=== PATIENT | male | born 1995 | race Caucasian/White ===

== ENCOUNTER 2017-06-24 00:33 | Emergency (ER) | END 2017-06-24 04:45 | disposition home or self-care (01) ==

== ENCOUNTER 2017-08-24 11:19 | Emergency (ER) | END 2017-08-24 12:34 | disposition home or self-care (01) ==

== ENCOUNTER 2018-01-18 01:42 | Emergency (ER) | END 2018-01-18 02:55 | disposition home or self-care (01) ==

== ENCOUNTER 2018-03-21 00:56 | Emergency (ER) | END 2018-03-21 04:05 | disposition home or self-care (01) ==

== ENCOUNTER 2018-09-18 22:48 | Emergency (ER) | payer OTHER ==
[~2018-09-18] VITALS: Ht 180.3 cm; Wt 80.0 kg
[~2018-09-18 22:48] MED LIST: BACI28.34 TOP; CEPH-443 PO; CLIN300C10 PO; IBUP-1542 PO; IBUP800T48 PO; ONDA4TAB14 PO; SULF1TAB31 PO
[2018-09-18 22:49] VITALS: Ht 180.3 cm; Wt 80.0 kg
[2018-09-19] MEDS ORDERED: ONDANSETRON 4 MG INJ IV STA (00:56)
[2018-09-19] MEDS ORDERED: SOD CHLORIDE 0.9% 1,000 ML IV STA (00:56)
[2018-09-19] MEDS ORDERED: morphine 4 MG/ML VIAL IV STA (00:56)
[2018-09-19] MEDS ORDERED: KETOROLAC 30 MG INJ IV STA (00:56)
[2018-09-19] MEDS ORDERED: TRAM50TA2 PO (03:25)
[2018-09-19] MEDS ORDERED: CEPH-443 PO (03:25)
[2018-09-19] MEDS ORDERED: TAMS-14 PO (03:25)
--- NOTE | 2018-09-19 03:42 | ERD ---
ER Documentation Chief Complaint Chief Complaint kidney stones hx of with nausea HPI This is a 23-year-old male with kidney stones. He said he started having flank pain sudden onset about 4 hours prior to arrival. Pain is colicky in nature. Mild associated nausea but no vomiting. No fevers or chills. ROS All systems reviewed and are negative except as per history of present illness. Medications Home Meds Active Scripts Tramadol HCl (Tramadol HCl) 50 Mg Tablet, 50 MG PO Q4 PRN for PAIN, #20 TAB Prov:MARLA VILLANUEVA S. 09/19/18 Cephalexin* (Keflex*) 500 Mg Capsule, 500 MG PO QID for 5 Days, CAP Prov:MARLA VILLANUEVA S. 09/19/18 Tamsulosin Hcl* (Flomax*) 0.4 Mg Cap.er.24h, 0.4 MG PO QPM for 7 Days, #7 CAP Prov:MARLA VILLANUEVA S. 09/19/18 Ondansetron (Ondansetron Odt) 4 Mg Tab.rapdis, 4 MG PO Q6H PRN for NAUSEA AND/OR VOMITING, #20 TAB Prov:NATHAN ZIEGLER PA-C 03/21/18 Ibuprofen* (Motrin*) 800 Mg Tab, 800 MG PO Q6, #30 TAB Prov:NATHAN ZIEGLER PA-C 03/21/18 Ibuprofen* (Motrin*) 600 Mg Tab, 600 MG PO Q6H PRN for PAIN AND OR ELEVATED TEMP, #30 TAB Prov:MECHE SALAS NP 01/18/18 Clindamycin Hcl* (Clindamycin Hcl*) 300 Mg Capsule, 300 MG PO TID for 10 Days, CAP Prov:MECHE SALAS ECONOMIC DEVELOPMENT COORDINATOR 01/18/18 Ibuprofen* (Motrin*) 600 Mg Tab, 600 MG PO Q6, #30 TAB Prov:DEION WHITTINGTON PA-C 08/24/17 Bacitracin* (Bacitracin Zinc Oint*) 28.35 Gm Oint, 1 APPLIC TOP BID, #1 TUB APPLI TO Prov:DEION WHITTINGTON PA-C 08/24/17 Cephalexin* (Keflex*) 500 Mg Capsule, 500 MG PO QID for 7 Days, CAP Prov:DEION WHITTINGTON PA-C 3/21/18 Ibuprofen* (Motrin*) 600 Mg Tab, 600 MG PO Q6, #30 TAB Prov:MARLA VALDEZ PA-C 06/24/17 Cephalexin* (Keflex*) 500 Mg Capsule, 500 MG PO TID for 7 Days, #21 CAP Prov:MARLA VALDEZ PA-C 06/24/17 Sulfamethoxazole/Trimethoprim* (Bactrim Ds* Tablet) 1 Each Tablet, 1 TAB PO BID, #14 TAB Prov:MARLA VALDEZ PA-C 06/24/17 Ibuprofen* (Motrin*) 600 Mg Tab, 600 MG PO Q6, #30 TAB Prov:JON TUCKER 04/04/16 Allergies Allergies: Coded Allergies: No Known Allergy (Unverified , 06/24/17) PMhx/Soc History of Surgery: No Anesthesia Reaction: No Hx Neurological Disorder: No Hx Respiratory Disorders: Yes (ASTHMA ) Hx Cardiac Disorders: No Hx Psychiatric Problems: No Hx Miscellaneous Medical Probl: Yes (HOSP ASTHMA, KIDNEY STONE) Hx Alcohol Use: Yes (OCCASIONALLY) Hx Substance Use: No Hx Tobacco Use: Yes Smoking Status: Never smoker Physical Exam Vitals Vital Signs Date Temp Pulse Resp B/P (MAP) Pulse Ox O2 O2 Flow FiO2 Time Delivery Rate 09/19/18 98.0 67 13 113/68 94 Room Air 02:42 (83) 09/19/18 98.0 68 17 122/87 94 Room Air 01:19 (99) 09/18/18 98.1 100 20 152/105 99 22:49 (121) Physical Exam Const: No acute distress Head: Atraumatic Eyes: Normal Conjunctiva ENT: Normal External Ears, Nose and Mouth. Neck: Full range of motion. No meningismus. Resp: Clear to auscultation bilaterally Cardio: Regular rate and rhythm, no murmurs Abd: Soft, non tender, non distended. Normal bowel sounds Skin: No petechiae or rashes Back: No midline or flank tenderness Ext: No cyanosis, or edema Neur: Awake and alert Psych: Normal Mood and Affect Result Diagram: 09/19/1810009/19/18 0101 Results 24 hrs Laboratory Tests Test 09/19/18 01:01 White Blood Count 10.7 10^3/ul Red Blood Count 5.04 10^6/ul Hemoglobin 14.4 g/dl Hematocrit 43.1 % Mean Corpuscular Volume 85.5 fl Mean Corpuscular Hemoglobin 28.6 pg Mean Corpuscular Hemoglobin Concent 33.4 g/dl Red Cell Distribution Width 12.1 % Platelet Count 203 10^3/UL Mean Platelet Volume 11.8 fl Immature Granulocytes % 0.500 % Neutrophils % 73.2 % Lymphocytes % 17.2 % Monocytes % 6.0 % Eosinophils % 2.8 % Basophils % 0.3 % Nucleated Red Blood Cells % 0.0 /100WBC Immature Granulocytes # 0.050 10^3/ul Neutrophils # 7.9 10^3/ul Lymphocytes # 1.9 10^3/ul Monocytes # 0.6 10^3/ul Eosinophils # 0.3 10^3/ul Basophils # 0.0 10^3/ul Nucleated Red Blood Cells # 0.0 10^3/ul Sodium Level 143 mmol/L Potassium Level 3.8 mmol/L Chloride Level 102 mmol/L Carbon Dioxide Level 28 mmol/L Anion Gap 13 Blood Urea Nitrogen 16 mg/dl Creatinine 1.09 mg/dl Est Glomerular Filtrat Rate mL/min > 60 mL/min Glucose Level 123 mg/dl Calcium Level 9.1 mg/dl Total Bilirubin 0.1 mg/dl Direct Bilirubin 0.00 mg/dl Indirect Bilirubin 0.1 mg/dl Aspartate Amino Transf (AST/SGOT) 32 IU/L Alanine Aminotransferase (ALT/SGPT) 57 IU/L Alkaline Phosphatase 74 IU/L Total Protein 7.9 g/dl Albumin 4.4 g/dl Globulin 3.50 g/dl Albumin/Globulin Ratio 1.25 Lipase 47 U/L Current Medications Medications Dose Sig/Charles Start Time Status Last (Trade) Ordered Route PRN Stop Time Admin Dose Reason Admin Sodium 1,000 ml @ Q1H STAT 09/19/18 DC Chloride 1,000 mls/hr IV 00:56 09/19/18 01:55 Morphine 4 mg ONCE STAT 09/19/18 DC 09/19/18 Sulfate IV 00:56 01:09 (morphine) 09/19/18 00:57 Ondansetron 4 mg ONCE STAT 09/19/18 DC 09/19/18 HCl (Zofran IV 00:56 01:09 Inj) 09/19/18 00:57 Ketorolac 30 mg ONCE STAT 09/19/18 DC 09/19/18 Tromethamine IV 00:56 01:10 (Toradol) 09/19/18 00:57 Procedures/MDM Emergency department course: Patient seen Jaylasevero wilkes placed in bed from [facility]. Had blood work done. Has had CT scan of the abdomen pelvis. Serial exams are stable. Medical decision making: This very pleasant patient with a kidney stone. At this point clinically stable for trial of outpatient management. Discharged home with tramadol, Zofran, Flomax. Advised to return in 8 hours for serial abdominal exams. Departure Diagnosis: Primary Impression: Flank pain Condition: Stable Patient Instructions: Kidney Stone W/ Colic MARLA VILLANUEVA Sep 19, 2018 03:42
[2018-09-19 04:00] VITALS: BP 111/75; PULSE 75; RESP 18
== END 2018-09-19 04:00 | disposition home or self-care (01) ==
LOC: E/R 22:48
DX: R10.9 Unspecified abdominal pain (principal); J45.909 Unspecified asthma, uncomplicated
CPT/HCPCS: 36415; 74176; 80053; 83690; 85025; 96374; 96375; J1885; J2270; J2405; J7030; Z7502

== ENCOUNTER 2019-01-29 22:02 | Emergency (ER) | payer OTHER ==
[~2019-01-29] VITALS: Ht 175.3 cm; Wt 118.0 kg
[~2019-01-29 22:02] MED LIST changes: +HYDR-4011 PO; +TAMS-14 PO; +TRAM50TA2 PO
[2019-01-29 22:13] VITALS: Ht 175.3 cm; Wt 118.0 kg
[2019-01-29] MEDS ORDERED: HYDROmorphONE 0.5 MG/0.5 ML SYG IM STA (23:07)
[2019-01-29] MEDS ORDERED: TRIMETHOPRIM/SULFAMETHOX (DS) TAB PO ONE (23:30)
[2019-01-29] MEDS ORDERED: LIDOCAINE 1% (MDV) 20 ML INJ SC ONE (23:30)
[2019-01-29] MEDS ORDERED: IBUPROFEN 600 MG TAB PO ONE (23:30)
[2019-01-29] MEDS ORDERED: CEPHALEXIN 500 MG CAP PO ONE (23:30)
[2019-01-30 00:28] VITALS: BP 137/83; PULSE 80; RESP 20
== END 2019-01-30 00:29 | disposition home or self-care (01) ==
LOC: FTE 22:02
DX: L05.01 Pilonidal cyst with abscess (principal); J45.909 Unspecified asthma, uncomplicated; F17.210 Nicotine dependence, cigarettes, uncomplicated
CPT/HCPCS: 10080; 96372; J1170; Z7502; Z7610

== ENCOUNTER 2019-02-08 22:05 | Emergency (ER) | payer OTHER ==
[~2019-02-08] VITALS: Ht 177.8 cm; Wt 119.9 kg
[2019-02-08 22:09] VITALS: Ht 177.8 cm; Wt 119.9 kg
[2019-02-09] MEDS ORDERED: LIDOCAINE 1% (MDV) 20 ML INJ SC ONE
[2019-02-09] MEDS ORDERED: HYDROCODONE/APAP (10/325) TAB PO ONE
[2019-02-09 00:50] VITALS: BP 131/65; PULSE 96; RESP 16
== END 2019-02-09 00:51 | disposition home or self-care (01) ==
LOC: FTE 22:05
DX: L02.31 Cutaneous abscess of buttock (principal); J45.909 Unspecified asthma, uncomplicated; F17.210 Nicotine dependence, cigarettes, uncomplicated
CPT/HCPCS: 10061; Z7502; Z7610

== ENCOUNTER 2019-03-01 14:12 | Emergency (ER) | payer SELFPAY | END 2019-03-02 03:06 | disposition left against medical advice (07) | LOC: E/R 14:12 | DX: Z53.21 Procedure and treatment not carried out due to patient leaving prior to being seen by health care provider (principal) ==